=== PATIENT | female | born 1945 | race Two or more races ===

== ENCOUNTER 2021-09-12 08:00 | Outpatient (CLI) | payer OTHER | END 2021-09-12 08:30 | disposition home or self-care (01) | LOC: PPH VACUNA 08:00 | PROVIDERS: ATTEND Emergency Medicine Pediatric Emergency Medicine | DX: Z23 Encounter for immunization (principal) ==

== ENCOUNTER 2024-10-06 10:30 | Outpatient (CLI) | payer OTHER | END 2024-10-06 11:13 | disposition home or self-care (01) | LOC: SONOGRAMA 10:30 | PROVIDERS: ATTEND Pathology Anatomic Pathology & Clinical Pathology | DX: E04.2 Nontoxic multinodular goiter (principal); D34 Benign neoplasm of thyroid gland; E06.3 Autoimmune thyroiditis ==